=== PATIENT | female | born 1975 | race Hispanic/Latino ===

== ENCOUNTER 2021-08-04 07:35 | Emergency (ER) | payer SELFPAY ==
[~2021-08-04] VITALS: Ht 154.9 cm; Wt 83.9 kg
[2021-08-04] MEDS ORDERED: KETOROLAC TROMETHAMINE 60 MG/2 ML VIAL IM ONE (08:15)
== END 2021-08-04 09:20 | disposition home or self-care (01) ==
LOC: ER 07:45
DX: R07.89 Other chest pain (principal); I10 Essential (primary) hypertension; E78.5 Hyperlipidemia, unspecified
CPT/HCPCS: 71045; 93005; 99284

== ENCOUNTER 2023-04-02 11:35 | Emergency (ER) | payer OTHER ==
[~2023-04-02] VITALS: Ht 149.9 cm; Wt 86.2 kg
[2023-04-02] MEDS ORDERED: SODIUM CHLORIDE 0.9% 1000ML 1,000 ML IV SCH (13:45)
[2023-04-02] MEDS ORDERED: KETOROLAC TROMETHAMINE 30 MG/ML VIAL IV STA (13:45)
[2023-04-02] MEDS ORDERED: SODIUM CHLORIDE 0.9% 1000ML 1,000 ML ONE (14:13)
[2023-04-02] MEDS ORDERED: KETOROLAC TROMETHAMINE 30 MG/ML VIAL ONE (14:13)
[2023-04-02] MEDS ORDERED: IOPAMIDOL 370 MG/ML 100 ML INFUS..BTL INJ ONE (14:32)
[2023-04-02] MEDS ORDERED: PANTOPRAZOLE SO40 MG PO (14:51)
[2023-04-02] MEDS ORDERED: NAPROSYN500 MG PO (14:52)
[2023-04-02] MEDS ORDERED: PREDNISONE50 MG PO (16:39)
[2023-04-02] MEDS ORDERED: ULTRAM 50MG50 MG PO (16:40)
[2023-04-02 16:53] VITALS: BP 123/67; PULSE 88; RESP 18; O2SAT 98
[2023-04-03] MEDS ORDERED: METFORMIN HCL500 MG PO (05:31)
== END 2023-04-02 16:54 | disposition home or self-care (01) ==
LOC: FSED 11:41
DX: R10.32 Left lower quadrant pain (principal); M54.42 Lumbago with sciatica, left side; M54.16 Radiculopathy, lumbar region; R73.03 Prediabetes; I10 Essential (primary) hypertension; E78.5 Hyperlipidemia, unspecified; E66.9 Obesity, unspecified
CPT/HCPCS: 74177; 80053; 81003; 81025; 85025; 99283; J1885; J7030; Q9967

== ENCOUNTER 2024-10-01 10:31 | Emergency (ER) | payer OTHER ==
[~2024-10-01] VITALS: Ht 147.3 cm; Wt 86.8 kg
[~2024-10-01 10:31] MED LIST: METFORMIN HCL500 MG PO; NAPROSYN500 MG PO; NEURONTIN300 MG PO; PANTOPRAZOLE SO40 MG PO; PREDNISONE50 MG PO; ULTRAM 50MG50 MG PO
[2024-10-01] MEDS: IBUPROFEN 600 MG TAB PO STA (11:30)
[2024-10-01] MEDS: TETANUS/DIPHTHERIA TOX ADULT 0.5 ML SYR IM ONE (11:30)
[2024-10-01] MEDS ORDERED: METHOCARBAMOL500 MG PO (12:32)
[2024-10-01] MEDS ORDERED: KETOROLAC TROME10 MG PO (12:32)
[2024-10-01] MEDS ORDERED: MUPIROCIN22 GM TOP (12:33)
[2024-10-01 12:53] VITALS: PULSE 76; RESP 14; TEMP 98.2; O2SAT 100
== END 2024-10-01 13:15 | disposition home or self-care (01) ==
LOC: FSED 10:43
DX: S00.31XA Abrasion of nose, initial encounter (principal); S80.212A Abrasion, left knee, initial encounter; M25.562 Pain in left knee; W18.49XA Other slipping, tripping and stumbling without falling, initial encounter; Y93.01 Activity, walking, marching and hiking; Y92.89 Other specified places as the place of occurrence of the external cause
CPT/HCPCS: 90471; 90714; 96372; 99283

== ENCOUNTER 2025-01-15 13:02 | Emergency (ER) | payer OTHER ==
[~2025-01-15 13:02] MED LIST changes: +KETOROLAC TROME10 MG PO; +METHOCARBAMOL500 MG PO; +MUPIROCIN22 GM TOP
[2025-01-15 13:09] VITALS: PULSE 85; RESP 18; TEMP 98.1; O2SAT 95
[2025-01-15] MEDS ORDERED: CEPHALEXIN500 MG PO (13:23)
== END 2025-01-15 13:37 | disposition home or self-care (01) ==
LOC: FSED 13:10
DX: L03.032 Cellulitis of left toe (principal); I10 Essential (primary) hypertension; E11.9 Type 2 diabetes mellitus without complications; E78.5 Hyperlipidemia, unspecified; F41.9 Anxiety disorder, unspecified; Z87.442 Personal history of urinary calculi
CPT/HCPCS: 99284